=== PATIENT | female | born 1945 | race Two or more races ===

== ENCOUNTER 2018-09-20 10:00 | Inpatient (IN) | payer OTHER ==
[~2018-09-20] VITALS: Ht 160 cm; Wt 68.0 kg
[2018-09-20] MEDS ORDERED: GABAPENTIN800 MG PO (11:41)
[2018-09-20] MEDS ORDERED: CYMBALTA30 MG PO (11:42)
[2018-09-20] MEDS ORDERED: AMLODIPINE BESY10 MG PO (11:42)
[2018-09-20] MEDS ORDERED: PRAMIPEXOLE DI0.5 MG PO (11:42)
[2018-09-20] MEDS ORDERED: LOVASTATIN10 MG PO (11:43)
[2018-09-29] MEDS ORDERED: XARELTO10 MG PO (08:08)
[2018-09-29] MEDS ORDERED: ULTRAM50 MG PO (08:08)
[2018-09-29] MEDS ORDERED: INTEGRA PLUS C1 EACH PO (08:08)
== END 2018-09-29 11:59 | DRG 470 ==
LOC: O/R 09-26 05:14 → SURH 09-26 05:14
PROVIDERS: ADMIT Orthopaedic Surgery Sports Medicine
PROC: 0SRC0J9 Replacement of Right Knee Joint with Synthetic Substitute, Cemented, Open Approach (ICD-10-PCS; principal; 2018-09-26 07:00)
DX: M17.11 Unilateral primary osteoarthritis, right knee (principal); I10 Essential (primary) hypertension; D72.828 Other elevated white blood cell count

== ENCOUNTER 2020-06-10 11:15 | Inpatient (IN) | payer OTHER ==
[~2020-06-10] VITALS: Ht 160 cm; Wt 67.1 kg
[~2020-06-10 11:15] MED LIST: AMLODIPINE BESY10 MG PO; CYMBALTA30 MG PO; GABAPENTIN800 MG PO; INTEGRA PLUS C1 EACH PO; LOVASTATIN10 MG PO; PRAMIPEXOLE DI0.5 MG PO; ULTRAM50 MG PO; XARELTO10 MG PO
[2020-06-10] MEDS ORDERED: LOSARTAN-HCTZ1 EACH PO (14:27)
[2020-06-10] MEDS ORDERED: ATORVASTATIN CA20 MG PO (14:28)
[2020-06-10] MEDS ORDERED: [UNRECOGNIZED DRUG - OTHER] PO (14:28)
[2020-06-10] MEDS ORDERED: ACID REDUCER20 M1 PO (14:28)
[2020-06-10] MEDS ORDERED: MELATONINA PO (14:29)
[2020-06-10] MEDS ORDERED: ADULT LOW DOSE81 M1 PO (14:29)
[2020-06-10] MEDS ORDERED: MAGNESIUM400 MG PO (14:30)
[2020-06-17] MEDS ORDERED: MELATONIN1 MG (07:58)
[2020-06-19] MEDS ORDERED: OXYC1TAB9 PO (08:04)
[2020-06-19] MEDS ORDERED: INTEGRA PLUS C1 EACH PO (08:04)
[2020-06-19] MEDS ORDERED: XARELTO10 MG PO (08:04)
[2020-06-19] MEDS ORDERED: BACTRIM DS TAB1 EACH PO (08:04)
== END 2020-06-19 14:46 | DRG 470 ==
LOC: O/R 06-17 05:45 → SURH 06-17 05:45 → O/R 06-17 07:00 → SURH 06-17 11:38
PROVIDERS: ADMIT Orthopaedic Surgery Sports Medicine; ATTEND Orthopaedic Surgery Sports Medicine
PROC: 0SRD0J9 Replacement of Left Knee Joint with Synthetic Substitute, Cemented, Open Approach (ICD-10-PCS; principal; 2020-06-17 07:00)
DX: M17.12 Unilateral primary osteoarthritis, left knee (principal)